=== PATIENT | female | born 1960 | race Caucasian/White ===

== ENCOUNTER 2017-06-27 11:50 | Emergency (ER) | payer SELFPAY ==
[~2017-06-27] VITALS: Ht 170.2 cm; Wt 56.7 kg
[~2017-06-27 11:50] MED LIST: CLINDAMYCIN HC300 MG PO
[2017-06-27] MEDS ORDERED: SUBOXONE 8 MG-1 EAC1 SL (12:02)
== END 2017-06-27 12:09 | disposition home or self-care (01) ==
LOC: ED 11:50
DX: L02.416 Cutaneous abscess of left lower limb (principal)

== ENCOUNTER 2017-07-19 14:32 | Emergency (ER) | payer OTHER ==
[~2017-07-19] VITALS: Ht 170.2 cm; Wt 56.7 kg
[~2017-07-19 14:32] MED LIST changes: +SUBOXONE 8 MG-1 EAC1 SL
[2017-07-19] MEDS ORDERED: NORCO 5-325 TA1 EACH PO (20:04)
== END 2017-07-19 20:54 | disposition home or self-care (01) ==
LOC: ED 14:32
DX: R07.89 Other chest pain (principal); F17.200 Nicotine dependence, unspecified, uncomplicated; Z90.710 Acquired absence of both cervix and uterus; Y04.8XXA Assault by other bodily force, initial encounter
CPT/HCPCS: 70450; 71046; 72125; 74177; 80053; 81001; 85025; 96361; 96374; 96375; 99284; J1170; J2405; J7030; Q9967

== ENCOUNTER 2021-05-27 18:46 | Emergency (ER) | payer OTHER ==
[~2021-05-27] VITALS: Ht 170.2 cm; Wt 61.2 kg
[~2021-05-27 18:46] MED LIST changes: +DICLOFENAC SODI75 MG PO; +GABAPENTIN300 MG PO; +NORCO 5-325 TA1 EACH PO; +OXYCODONE HCL5 MG PO; +SENNA LAX8.6 MG PO; +SUBOXONE 2 MG-1 EAC2 SL
[2021-05-27] MEDS ORDERED: METHADONE HCL10 MG PO (20:00)
== END 2021-05-27 21:05 | disposition home or self-care (01) ==
LOC: ED 18:46
DX: Z53.21 Procedure and treatment not carried out due to patient leaving prior to being seen by health care provider (principal)
CPT/HCPCS: 81001